=== PATIENT | male | born 2005 | race Caucasian/White ===

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

== ENCOUNTER 2025-09-03 05:18 | Emergency (ER) | payer SELFPAY ==
[2025-09-03 06:21] VITALS: BP 138/77; PULSE 108
== END 2025-09-03 06:19 | disposition home or self-care (01) ==
LOC: JP.ED 05:18
DX: F10.239 Alcohol dependence with withdrawal, unspecified (principal); F17.200 Nicotine dependence, unspecified, uncomplicated; Y90.9 Presence of alcohol in blood, level not specified
CPT/HCPCS: 99284; A9270

== ENCOUNTER 2025-09-18 16:16 | Emergency (ER) | payer SELFPAY ==
[2025-09-18 16:36] VITALS: BP 137/87; PULSE 98
[2025-09-18 17:17] LABS: BASOPHILS ABSOLUTE AUTO 0.10 K/uL (0.00-0.10); BASOPHILS PERCENT AUTO 1.7 % (0.1-1.3); EOSINOPHILS ABSOLUTE AUTO 0.26 K/uL (0.00-0.40); EOSINOPHILS PERCENT AUTO 4.4 % (0.0-5.4); IMMATURE GRAN PERCENT AUTO 0.3 % (0.0-0.7); LYMPHOCYTES ABSOLUTE AUTO 2.02 K/uL (0.8-3.3); LYMPHOCYTES PERCENT AUTO 34.0 % (11.4-47.7); MONOCYTES ABSOLUTE AUTO 0.53 K/uL (0.20-0.90); MONOCYTES PERCENT AUTO 8.9 % (3.3-12.6); NEUTROPHILS ABSOLUTE AUTO 3.01 K/uL (1.0-7.6); NEUTROPHILS PERCENT AUTO 50.7 % (40.0-78.1); PLATELET COUNT,PLT 459 K/uL (130-375); RED BLOOD CELL COUNT 5.26 M/uL (4.14-5.76); WHITE BLOOD CELL COUNT,WBC 5.9 K/uL (3.2-11.0)
[2025-09-18 17:18] LABS: IMMATURE GRAN ABSOLUTE AUTO 0.02 K/uL (0.00-0.23)
[2025-09-18 17:35] LABS: ALANINE AMINOTRANSFERASE,ALT 46 U/L (12-78); ASPARTATE AMNIOTRANSFERASE,AST 33 U/L (15-37); BILIRUBIN TOTAL 0.4 mg/dL (0.2-1.0); BLOOD UREA NITROGEN,BUN 5 mg/dL (7-18); CARBON DIOXIDE,CO2 22 mmol/L (21-32); CHLORIDE,CL 102 mmol/L (100-108); CREATININE 0.9 mg/dL (0.8-1.3); EST CRCL DRUG DOSING (CG) 134.06 mL/min; ESTIMATED GFR 125 mL/min (>60); GLUCOSE RANDOM 95 mg/dL (74-106); POTASSIUM,K 4.1 mmol/L (3.6-5.2); PROTEIN TOTAL,TP 8.1 g/dL (6.4-8.2); SODIUM,NA 138 mmol/L (140-148)
[2025-09-18 17:36] LABS: A/G RATIO 1.3 (1.2-2.2)
== END 2025-09-18 17:59 | disposition home or self-care (01) ==
LOC: JP.ED 16:16
DX: F10.120 Alcohol abuse with intoxication, uncomplicated (principal)
CPT/HCPCS: 36415; 80053; 80307; 85025; 99284